=== PATIENT | male | born 1995 | race Two or more races ===

== ENCOUNTER → 2025-06-27 | Outpatient (CLI) | payer SELFPAY ==
[2025-06-27 16:44] LABS: % Variance 14 %; Count Side 1 12; Count Side 2 14; Sperm Count 13 Million (20-50)
[2025-06-27 16:45] LABS: % Variance Motility 0 %; Motl CLS 1 20; Motl CLS 2 20; Room Temperature 24 (20-27C (Area)); Sperm Motility 20 % (>=50)
== END | disposition home or self-care (01) ==
PROVIDERS: PCP Family Medicine; Referring Provider Physician Assistant; Visit Provider Physician Assistant
DX: Z31.41 Encounter for fertility testing (principal)
CPT/HCPCS: 89310